=== PATIENT | male | born 2005 | race Caucasian/White ===

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

== ENCOUNTER 2024-08-15 19:32 | Emergency (ER) | payer MEDICAID ==
[~2024-08-15] VITALS: Ht 172.7 cm; Wt 64.0 kg
[2024-08-15] MEDS: LORAZEPAM 1MG TABLET PO ONE (20:00)
[2024-08-15 20:01] VITALS: O2SAT 99
[2024-08-15] MEDS: HALOPERIDOL LACTATE 5MG/ML VIAL IM ONE (21:00)
[2024-08-15] MEDS: DIPHENHYDRAMINE 50MG/ML VIAL IM ONE (21:00)
[2024-08-15] MEDS: LORAZEPAM 2MG/ML INJ IM ONE (22:16)
[2024-08-15] MEDS: OLANZAPINE 10 MG/VIAL IM ONE (22:24)
[2024-08-16 02:43] LABS: BASOPHILS % 0.3 % (0.0-2.0); EOSINOPHILS % 1.6 % (0.0-5.0); HEMATOCRIT. 42.9 % (42.0-52.0); HEMOGLOBIN. 14.4 g/dL (14.0-18.0); LYMPHOCYTES % 35.6 % (20.0-50.0); MEAN CORPUSCULAR HEMOGLOBIN 32.5 pg (28.0-32.0); MEAN CORPUSCULAR HGB CONC 33.6 g/dL (31.0-37.0); MEAN CORPUSCULAR VOLUME 96.8 fL (80.0-94.0); MONOCYTES % 12.3 % (2.0-8.0); NEUTROPHILS % 50.2 % (40.0-76.0); PLATELET 139 x1000/uL (130-400); RED BLOOD CELL COUNT 4.44 mill/uL (4.7-6.1); RED CELL DISTRIBUTION WIDTH 12.9 % (11.6-14.6); WHITE BLOOD COUNT 5.3 x1000/uL (4.5-11.0)
[2024-08-16 02:49] LABS: CHLORIDE 108 mEq/L (98-107); POTASSIUM 4.6 mEq/L (3.5-5.1); SODIUM 140 mEq/L (136-145)
[2024-08-16 02:50] LABS: CALCIUM 8.9 mg/dL (8.7-10.4); CARBON DIOXIDE 29 mEq/L (21-32)
[2024-08-16 02:55] LABS: CREATININE 0.7 mg/dL (0.6-1.3); GLUCOSE 87 mg/dL (70-105); UREA NITROGEN BLOOD 13 mg/dL (9-23)
[2024-08-16 03:04] LABS: ETHANOL BLOOD < 10 mg/dL (<10)
[2024-08-16 11:28] VITALS: BP 110/81; PULSE 65; RESP 28; TEMP 36.89184; O2SAT 99
== END 2024-08-16 11:32 | disposition home or self-care (01) ==
LOC: ER 19:32
DX: R45.1 Restlessness and agitation (principal)
CPT/HCPCS: 36415 ×2; 96372; 99285; 80048; 80307; 80329; 80320; 85025; J3490; J1200; J1630; J2060; Z7610; G0480

== ENCOUNTER 2025-02-03 08:49 | Emergency (ER) | payer MEDICAID ==
[~2025-02-03] VITALS: Ht 172.7 cm; Wt 58.9 kg
[2025-02-03 08:53] VITALS: PULSE 80; RESP 16; TEMP 36.8; O2SAT 98
[2025-02-03] MEDS ORDERED: TOPUD PO (10:10)
[2025-02-03] MEDS ORDERED: DOXY100C5 MT (10:10)
[2025-02-03] MEDS ORDERED: DEXTL MT (10:10)
== END 2025-02-03 10:32 | disposition home or self-care (01) ==
LOC: ER 08:49
DX: R50.9 Fever, unspecified (principal); R05.9 Cough, unspecified; F84.0 Autistic disorder; G40.909 Epilepsy, unspecified, not intractable, without status epilepticus
CPT/HCPCS: 99283